=== PATIENT | female | born 2000 | race Caucasian/White ===

== ENCOUNTER 2022-07-25 20:23 | Day surgery (SDC) | payer BC ==
[2022-07-25 21:04] VITALS: BMI 33.1
[2022-07-25 21:25] LABS: Fetal Membranes Rupture No Membranes Rupture (No Rupture)
[2022-07-25] MEDS ORDERED: hydrALAZINE 20 MG/ML VIAL SLOW IVP PRN (21:49)
== END 2022-07-25 22:00 | disposition home or self-care (01) ==
LOC: CSHLD/OP 20:23
PROVIDERS: ATTEND Obstetrics & Gynecology
DX: O99.891 Other specified diseases and conditions complicating pregnancy (principal); N89.8 Other specified noninflammatory disorders of vagina; Z3A.39 39 weeks gestation of pregnancy
CPT/HCPCS: 84112; 99283